=== PATIENT | female | born 1995 | race Caucasian/White ===

== ENCOUNTER 2019-03-28 14:11 | Emergency (ER) | payer BC, MEDICAID ==
[~2019-03-28] VITALS: Ht 175.3 cm; Wt 88.5 kg
[2019-03-28 14:15] VITALS: BP_SYST 158
--- NOTE | 2019-03-28 14:23 | NUR ---
Placed in room 07 . Placed on alarm security or surveillance monitor, blood pressure machine and pulse oximeter. To gown for exam. Side rails up. Report given to Nydia JAQUEZ.
--- NOTE | 2019-03-28 14:25 | NUR ---
Patient arrived in the ED c/o abdominal pain that radiates to the back and diarrhea that started yesterday. Denied any recent trauma or falls. Denied any chest pain, SOB or dizziness. Patient is alert and oriented x4, respirations even and unlabored, speaking in full sentences, and ambulating with a steady gait. VSS, pain level 7/10. Informed of the wait time. Instructed to notify ED staff for any changes in condition or worsening of symptoms. Patient verbalized understanding.
--- NOTE | 2019-03-28 14:25 | NUR ---
ER Dr. Hernandez at bedside examining patient.
[2019-03-28] MEDS ORDERED: KETOROLAC TROMETHAMINE 30 MG VIAL IVP ONE (14:45)
[2019-03-28] MEDS ORDERED: NACL 0.9% 1,000 ML IV ONE (14:45)
[2019-03-28 15:51] LABS: BASOPHILS % (AUTO) 0.4 % (0.0-2.0); EOSINOPHILS # (AUTO) 0.1 K/uL (0.0-0.4); EOSINOPHILS % (AUTO) 1.7 % (0.0-4.0); HEMATOCRIT 35.7 % (36-48); LYMPHOCYTES # (AUTO) 2.1 K/uL (1.0-5.5); MEAN CORPUSCULAR HEMOGLOBIN 28 pg (27-31); MEAN CORPUSCULAR HGB CONC 34 % (32-36); MEAN CORPUSCULAR VOLUME 83 fL (79.0-98.0); MONOCYTES # (AUTO) 0.4 K/uL (0.0-1.0); MONOCYTES % (AUTO) 6.4 % (1.7-9.3); NEUTROPHILS % (AUTO) 60.5 % (40.0-70.0); PLATELET COUNT (AUTO) 297 K/uL (130-430); RED BLOOD CELL COUNT(AUTO) 4.31 MIL/uL (4.2-6.2); RED CELL DISTRIBUTION WIDTH 13.9 % (9.0-15.0); WHITE BLOOD COUNT (AUTO) 6.7 K/uL (4.8-10.8)
--- NOTE | 2019-03-28 15:54 | NUR ---
MEdication administered. Pt tolerated well. No adverse reactions noted.
[2019-03-28 16:01] LABS: CALCIUM 8.5 mg/dL (8.4-11.0); CREATININE 0.51 mg/dL (0.55-1.30); POTASSIUM 4.1 mmol/L (3.5-5.1)
[2019-03-28 16:07] LABS: ALBUMIN 3.6 g/dL (3.4-4.8); TOTAL BILIRUBIN 0.2 mg/dL (0.0-1.0)
[2019-03-28 16:58] VITALS: BP_SYST 143
--- NOTE | 2019-03-28 16:58 | NUR ---
Patient given written and verbal discharge instructions and verbalizes understanding. ER MD Hernandez discussed with patient the results and treatment provided. Patient in stable condition. ID arm band removed. IV catheter removed intact and dressing applied, no active bleeding. Rx of Misoprostrol, Tramadol given. Patient educated on pain management and to follow up with PMD. Pain Scale 3. Opportunity for questions provided and answered. Medication side effect fact sheet provided.
== END 2019-03-28 16:58 | disposition home or self-care (01) ==
LOC: SED 14:11
DX: O03.4 Incomplete spontaneous abortion without complication (principal); E11.9 Type 2 diabetes mellitus without complications
CPT/HCPCS: 36415; 76830; 76857; 80053; 81002; 81025; 83690; 84702; 85025; 96374; 99284; J1885; J7030